=== PATIENT | female | born 1940 | race Caucasian/White ===

== ENCOUNTER 2016-12-22 12:47 | Emergency (ER) | payer BC, MEDICARE ==
[~2016-12-22] VITALS: Ht 144.8 cm; Wt 79.4 kg
[~2016-12-22 12:47] MED LIST: ASPIRIN81 MG ORAL; ATIVAN1 MG ORAL; AVAPRO300 MG PO; LOVAZA1 GM ORAL; METHOCARBAMOL750 MG ORAL; NEXIUM40 MG ORAL; NORCO 10/3251 EA ORAL; PRAVASTATIN SOD20 M1 ORAL; ULORIC80 MG ORAL; VENTOLIN HFA18 GM INH; VIBRAMYCIN100 MG ORAL; VITAMIN A10000 UNIT ORAL; VITAMIN B-122000 MC1 PO; VITAMIN C500 M1 ORAL; VITAMIN D3400 UNI2 PO; VITAMIN E400 UNI5 PO; ZETIA10 MG ORAL
--- NOTE | 2016-12-22 13:41 | Emergency Room Report ---
History of Present Illness General Chief Complaint: Pain Source: Patient Present Illness HPI 76 YO Female presents to the ED c/o Right wrist, bilateral shoulder soreness, with upper mid back tenderness x 2 days s/p fall in chair yesterday. pt. reports pain to be generalized 5/10 in severity constant dull/ache that has had no relief from previously rx'd Narcotic pain medication and rest at home. pt. reports hx of lumbar spine problems. pt. denies hitting her head or LOC. pt. denies taking blood thinning medications. pt. reports hx of renal disease. Pt. denies bruises or open lesions. pt. states pain is exacerbated with raising both arm above her head. pt. also reports right wrist ache that is mildly relieved with wrap but persistent. denies bony ttp.Denies numbness tingling or loss of sensation or gross motor movements of the extremities, incontinence of bowel or bladder. Denies CP, Palpitations, LOC, AMS, dizziness, Changes in Vision, Sensation, paresthesias, or a sudden severe headache. Allergies: Coded Allergies: ALLOPURINOL (Verified Allergy, Mild, Hives, 10/19/12) PENICILLINS (Verified Allergy, Mild, Hives, 10/19/12) SULFA (SULFONAMIDE ANTIBIOTICS) (Verified Allergy, Mild, Hives, 10/19/12) Patient History Past Medical History: see triage record, other - lumbar spinal disorder, chronic pain Past Surgical History: none Pertinent Family History: none Now: No Reviewed Nursing Documentation: PMH: Agreed, PSxH: Agreed Nursing Documentation-PMH Past Medical History: No History, Except For Hx Cardiac Problems: Yes - hyperlipidemia Hx Hypertension: Yes Hx Pacemaker: No Hx Asthma: Yes Hx COPD: Yes Hx Diabetes: No Hx Cancer: Yes - Breast 2011 Hx Gastrointestinal Problems: Yes - gallblader removed ,Gerd, Hysterectomy Hx Dialysis: No Hx Neurological Problems: No Hx Cerebrovascular Accident: No Hx Seizures: No Review of Systems All Other Systems: negative except mentioned in HPI Physical Exam Vital Signs Date Time Temp Pulse Resp B/P (MAP) Pulse Ox O2 Delivery O2 Flow Rate FiO2 12/22/16 13:01 98.1 89 22 159/80 98 Sp02 EP Interpretation: reviewed, normal General Appearance: no apparent distress, alert, GCS 15, non-toxic Head: normocephalic, atraumatic Eyes: bilateral eye normal inspection, bilateral eye PERRL ENT: hearing grossly normal, normal voice Neck: full range of motion, no bony tend Respiratory: chest non-tender, lungs clear, normal breath sounds, no wheezing, speaking full sentences Cardiovascular #1: regular rate, rhythm, normal capillary refill Cardiovascular #2: 2+ radial (R) Rectal: deferred Genitourinary: normal inspection Musculoskeletal: back normal, gait/station normal, normal range of motion, other - negative snuff box tenderness, tender - Moderate midline TTP to the Thoracic Spine, no TTP to cervical or lumbar spinous processess. Trapezius musculature is palpated to be moderately tight bilaterally, FROM of the Shoulders no obvious deformity. pt. is ambulatory with a stead gait in NAD during ambulation. Neurologic: alert, oriented x3, responsive, motor strength/tone normal, sensory intact, speech normal Psychiatric: judgement/insight normal, memory normal, mood/affect normal Skin: normal color, no rash, warm/dry, well hydrated, other - contusion noted to the medial right wrist. Medical Decision Making PA Attestation Dr. Dobbins is my supervising Physician whom patient management has been discussed with. Diagnostic Impression: Primary Impression: Fall from chair Qualified Codes: W07.XXXA - Fall from chair, initial encounter Additional Impressions: Back pain Qualified Codes: M54.6 - Pain in thoracic spine Contusion, wrist Qualified Codes: S60.211A - Contusion of right wrist, initial encounter Right wrist sprain Qualified Codes: S63.501A - Unspecified sprain of right wrist, initial encounter ER Course 76 YO Female presents to the ED c/o Right wrist, bilateral shoulder soreness, with upper mid back tenderness x 2 days s/p fall in chair yesterday. pt. reports pain to be generalized 5/10 in severity constant dull/ache that has had no relief from previously rx'd Narcotic pain medication and rest at home. pt. reports hx of lumbar spine problems. pt. denies hitting her head or LOC. pt. denies taking blood thinning medications. pt. reports hx of renal disease. Pt. denies bruises or open lesions. pt. states pain is exacerbated with raising both arm above her head. pt. also reports right wrist ache that is mildly relieved with wrap but persistent. denies bony ttp.Denies numbness tingling or loss of sensation or gross motor movements of the extremities, incontinence of bowel or bladder. Denies CP, Palpitations, LOC, AMS, dizziness, Changes in Vision, Sensation, paresthesias, or a sudden severe headache. Ddx considered but are not limited to Fracture, dislocation, contusion, Sprain/ Strain/Spasm just to name a few Vital signs: are WNL, pt. is afebrile H&PE are most consistent with musculoskeletal injury will perform imaging to r/ o fractures/dislocations. ORDERS: - CT T-Spine No Contrast: No acute fracture or subluxation. Degenerative changes- Per official radiology report. -- X-ray Right wrist 3 views - Questionable for distal radius fx, most likely degenerative changes will splint and await radiology report, No Dislocation, or significant soft tissue injury, per preliminary read in ED by Dr. Hwang - interpretation is scribed by PA. ED INTERVENTIONS: - Pt declines pain medication -Right Wrist Splint applied by biodiesel production technician. Pt. remains neurovascularly intact. Pt. is given a printed copy of radiology results for CT. DISCHARGE: At this time pt. is stable for d/c to home. Will provide printed patient care instructions, and any necessary prescriptions. Care plan and follow up instructions have been discussed with the patient prior to discharge. Last Vital Signs Date Time Temp Pulse Resp B/P (MAP) Pulse Ox O2 Delivery O2 Flow Rate FiO2 12/22/16 13:01 98.1 89 22 159/80 98 Disposition: HOME, SELF-CARE Condition: Stable Patient Instructions: Contusion, [id number], Wrist Sprain Additional Instructions: Take previously prescribed medications as directed. Follow up with a Primary Care Provider in 3-5 days, even if your symptoms have resolved. --Please review list of primary care clinics, if you do not already have a primary care provider Return sooner to ED if new symptoms occur, or current symptoms become worse. - Please note that this Emergency Department Report was dictated using [employer] sales consultant technology software, occasionally this can lead to erroneous entry secondary to interpretation by the dictation equipment. Felicity Gonsalves Dec 22, 2016 13:41
[2016-12-22 15:41] VITALS: BP_SYST 154; BP_SYST 159; BP_DIAS 78; BP_DIAS 80
--- NOTE | 2016-12-23 08:49 | Diagnostic Imaging Report ---
Indication: Pain, status post fall Technique: Spiral acquisitions obtained through the thoracic spine. No IV contrast utilized. Multiplanar reconstructions were generated. Total dose length product 1108 mGycm. CTDIvol(s) 26, 28 mGy. Dose reduction achieved using automated exposure control Comparison: None Findings: Bony alignment is normal. Vertebral body heights are preserved. There are mild degenerative changes of multiple discs. No acute fractures. No dislocations. Multilevel neural foraminal stenosis is noted in the lower cervical spine. Within the thoracic spine, no significant disc old or protrusion, spinal stenosis, or neural foraminal stenosis is demonstrated. The included extraspinal soft tissues are remarkable for the presence of a small sliding-type hiatal hernia. Impression: No acute bony trauma Mild disc degeneration, as described The CT scanner at [facility] is accredited by the [employer] and the scans are performed using protocols designed to limit radiation exposure to as low as reasonably achievable to attain images of sufficient resolution adequate for diagnostic evaluation.
--- NOTE | 2016-12-23 10:22 | Diagnostic Imaging Report ---
Clinical Indication:PAIN Technique: 3 views of the right wrist Comparison: None Findings: No acute fractures. No dislocations. There is ulnar minus variant. Some calcification is seen within the triangular fibrocartilage. There are degenerative changes of the lateral intercarpal joint and first carpometacarpal joint, with considerable degenerative remodeling of the trapezoid and trapezium. Impression: No acute bony trauma Degenerative changes, as described. This agrees with the preliminary interpretation provided by the emergency room physician
== END 2016-12-22 15:43 | disposition home or self-care (01) ==
LOC: EMR 13:15
DX: M54.9 Dorsalgia, unspecified (principal); S60.211A Contusion of right wrist, initial encounter; S63.501A Unspecified sprain of right wrist, initial encounter; W07.XXXA Fall from chair, initial encounter; Y92.019 Unspecified place in single-family (private) house as the place of occurrence of the external cause; I10 Essential (primary) hypertension; J44.9 Chronic obstructive pulmonary disease, unspecified; Z85.3 Personal history of malignant neoplasm of breast; E78.5 Hyperlipidemia, unspecified; Z88.0 Allergy status to penicillin; Z88.2 Allergy status to sulfonamides; Z88.8 Allergy status to other drugs, medicaments and biological substances
CPT/HCPCS: 72128; 99284